=== PATIENT | female | born 1965 | race Hispanic/Latino ===

== ENCOUNTER 2018-09-23 05:10 | Observation (INO) | payer BC ==
[2018-09-22 09:52] LABS: BASOPHILS % 0.6 % (0.0-1.0); EOSINOPHILS # (AUTO) 0.2 (0.0-0.4); EOSINOPHILS % 2.6 % (0.0-6.0); HEMOGLOBIN 13.1 g/dL (12.0-16.0); LYMPHOCYTES % 31.6 % (18.0-39.1); MEAN CORPUSCULAR HEMOGLOBIN 25.5 pg (28-32); MEAN CORPUSCULAR HGB CONC 32.8 g/dL (31-35); MEAN CORPUSCULAR VOLUME 77.8 fL (81-99); MONOCYTES # (AUTO) 0.5 (0.2-0.8); MONOCYTES % 8.4 % (4.4-11.3); NEUTROPHILS # (AUTO) 3.5 (2.1-6.9); NEUTROPHILS % 56.6 % (38.7-80.0); PLATELET COUNT 234 x10e3/uL (140-360); RED BLOOD COUNT 5.14 x10e6/uL (3.6-5.1); RED CELL DISTRIBUTION WIDTH 15.3 % (11.7-14.4)
[2018-09-22 10:16] LABS: ALANINE AMINOTRANSFERASE 22 IU/L (0-55); ALBUMIN/GLOBULIN RATIO 1.1 (0.8-2.0); ALKALINE PHOSPHATASE 105 IU/L (40-150); BLOOD UREA NITROGEN 17 mg/dL (7-26); BUN/CREATININE RATIO 22 (6-25); CALCIUM 9.6 mg/dL (8.4-10.2); CARBON DIOXIDE 21 mmol/L (22-29); CHLORIDE 107 mmol/L (98-107); CREATININE, SERUM 0.77 mg/dL (0.57-1.11); EST GLOMERULAR FILTRATION RATE > 60 ML/MIN (60-); GLUCOSE 82 mg/dL (74-118); SODIUM 140 mmol/L (136-145)
[~2018-09-23] VITALS: Ht 165.1 cm; Wt 84.4 kg
[~2018-09-23 05:10] MED LIST: LEVOTHYROXINE50 MCG PO
--- OUTSIDE RECORDS SUMMARY | 2018-09-23 05:17 | XMS REPORT ---
Author Author Maru Sol [facility] eClinicalWorks Address Unknown Phone Unavailable Care Team Providers Care Piano Sounding Board Matcher Name Role Phone Maru Sol CP Unavailable Allergies No Known Allergies Problems Problem Type Condition Code Onset Dates Condition Status Problem Anemia, unspecified type D64.9 Active Problem Acquired hypothyroidism E03.9 Active Problem Iron deficiency anemia, unspecified iron deficiency anemia type D50.9 Active Assessment Iron deficiency anemia, unspecified iron deficiency anemia type D50.9 Active Medications No Known Medications Results No Known Results Summary Purpose eClinicalWorks Submission
--- OUTSIDE RECORDS SUMMARY | 2018-09-23 05:17 | XMS REPORT ---
Author Author Maru Sol [facility] eClinicalWorks Address Unknown Phone Unavailable Care Team Providers Care Peanut Vendor Name Role Phone Maru Sol CP Unavailable Allergies No Known Allergies Problems Problem Type Condition Code Onset Dates Condition Status Problem Anemia, unspecified type D64.9 Active Problem Acquired hypothyroidism E03.9 Active Problem Iron deficiency anemia, unspecified iron deficiency anemia type D50.9 Active Assessment Acquired hypothyroidism E03.9 Active Medications Medication Code System Code Instructions Start Date End Date Status Dosage Synthroid [facility] 77862927086 50 MCG Orally Once a day Active 1 tablet Results No Known Results Summary Purpose eClinicalWorks Submission
--- OUTSIDE RECORDS SUMMARY | 2018-09-23 05:17 | XMS REPORT ---
Author Author Niels Penaloza [facility] eClinicalWorks Address Unknown Phone Unavailable Care Team Providers Care Barrel Drum Cutter Name Role Phone Niels Penaloza CP Unavailable Encounters Encounter Location Date Follow-Up [facility] Feb 19, 2013 Test results [facility] Mar 24, 2013 WWE [facility] Jan 27, 2013 FBW/NIELS [facility] Jan 29, 2013 Test results [facility] Feb 16, 2013 Medications Medication Code System Code Instructions Start Date End Date Status Dosage Ferralet 90 [facility] [place] 2[place] [address]-14 90-1 MG Orally Once a day Mar 24, 2013 Active 1 tablet Social History Social History Element Qualifiers Date Reported children . 4 Feb 19, 2013 Tobacco Use: . Are you a: never smoker Feb 19, 2013 Marital Status: single. Noel Szymanski Feb 19, 2013 Do you drink alcohol? . 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
--- OUTSIDE RECORDS SUMMARY | 2018-09-23 05:17 | XMS REPORT ---
Author Author Deepti Almeida [facility] eClinicalWorks Address Unknown Phone Unavailable Care Team Providers Care Field Administrative Assistant Name Role Phone Deepti Almeida CP Unavailable Allergies No Known Allergies Problems Problem Type Condition Code Onset Dates Condition Status Problem Anemia, unspecified type D64.9 Active Problem Acquired hypothyroidism E03.9 Active Problem Iron deficiency anemia, unspecified iron deficiency anemia type D50.9 Active Medications No Known Medications Results No Known Results Summary Purpose eClinicalWorks Submission
--- OUTSIDE RECORDS SUMMARY | 2018-09-23 05:17 | XMS REPORT ---
Author Author Deepti Almeida [facility] eClinicalWorks Address Unknown Phone Unavailable Care Team Providers Care Fusion Operator Name Role Phone Deepti Almeida CP Unavailable Allergies No Known Allergies Problems Problem Type Condition Code Onset Dates Condition Status Problem Anemia, unspecified type D64.9 Active Problem Acquired hypothyroidism E03.9 Active Problem Iron deficiency anemia, unspecified iron deficiency anemia type D50.9 Active Medications No Known Medications Results No Known Results Summary Purpose eClinicalWorks Submission
--- OUTSIDE RECORDS SUMMARY | 2018-09-23 05:17 | XMS REPORT ---
Author Author Maru Sol [facility] eClinicalWorks Address Unknown Phone Unavailable Care Team Providers Care Assembler Fluorescent Lights Name Role Phone Mrau Sol CP Unavailable Allergies, Adverse Reactions, Alerts Substance Reaction Event Type N.K.D.A. Info Not Available Non Drug Allergy Problems Problem Type Condition Code Onset Dates Condition Status Assessment Screening for osteoporosis Z13.820 Active Assessment Iron deficiency anemia, unspecified iron deficiency anemia type D50.9 Active Assessment Screening for breast cancer Z12.39 Active Assessment Screening for colon cancer Z12.11 Active Problem Anemia, unspecified type D64.9 Active Problem Acquired hypothyroidism E03.9 Active Problem Iron deficiency anemia, unspecified iron deficiency anemia type D50.9 Active Assessment Anemia, unspecified type D64.9 Active Assessment Acquired hypothyroidism E03.9 Active Assessment Encntr for general adult medical exam w/o abnormal findings Z00.00 Active Medications Medication Code System Code Instructions Start Date End Date Status Dosage Multivitamin/Iron NDC 0 Orally Active not defined Fish Oil ND 90862761640 1000 MG Orally Once a day Active 1 capsule Ferralet 90 ND 97506362109 90-1 MG Orally Once a day Active 1 tablet Synthroid ND 89344159474 25 MCG Orally Once a day Active 1 tablet Results No Known Results Summary Purpose eClinicalWorks Submission
--- OUTSIDE RECORDS SUMMARY | 2018-09-23 05:17 | XMS REPORT ---
Author Author Maru Sol Organization eClinicalWorks Address Unknown Phone Unavailable Care Team Providers Care Customs Brokerage Manager Name Role Phone Maru Sol CP Unavailable Allergies, Adverse Reactions, Alerts Substance Reaction Event Type N.K.D.A. Info Not Available Non Drug Allergy Problems Problem Type Condition Code Onset Dates Condition Status Problem Acquired hypothyroidism E03.9 Active Assessment Anemia, unspecified type D64.9 Active Problem Anemia, unspecified type D64.9 Active Assessment Acquired hypothyroidism E03.9 Active Assessment Fatigue, unspecified type R53.83 Active Medications Medication Code System Code Instructions Start Date End Date Status Dosage Multivitamin/Iron NDC 0 Orally Active not defined Ferralet 90 ND 33763453734 90-1 MG Orally Once a day [place] [address]-28 1000 MG Orally Once a day Active 1 capsule Synthroid ND 54093159965 25 MCG Orally Once a day Active 1 tablet Vital Signs Date/Time: August 20, 2016 BMI 29.28 Index Weight 176 lbs Height 65 in Cardiac Monitoring Heart Rate 77 /min Blood Pressure Diastolic 70 mm Hg Blood Pressure Systolic 120 mm Hg Results No Known Results Summary Purpose eClinicalWorks Submission
--- OUTSIDE RECORDS SUMMARY | 2018-09-23 05:17 | XMS REPORT | Continuity of Care Document ---
Author Author [facility] Interface Address Unknown Phone Unavailable Problems Problem Status Onset Date Classification Date Reported Comments Source SCREENING Active 05/16/2018 [facility] Excessive and frequent menstruation with irregular cycle 05/30/2017 08/30/2017 [facility] N92.1 Active 05/17/2017 [facility] MAMMO Active 01/09/2016 [facility] Z12.39 ENCOUNTER FOR OTHER SCREENING FOR Active 12/06/2015 [facility] ROUTINE Active 05/14/2014 [facility] Anemia, unspecified type Active Problem 04/30/2018 [facility] Acquired hypothyroidism Active Problem 04/30/2018 [facility] Iron deficiency anemia, unspecified iron deficiency anemia type Active Problem 04/30/2018 [facility] Fatigue, unspecified type Active Diagnosis 08/21/2016 [facility] Nasal congestion Active Diagnosis 04/12/2017 [facility] Screening for osteoporosis Active Diagnosis 04/30/2018 [facility] Screening for breast cancer Active Diagnosis 04/30/2018 [facility] Screening for colon cancer Active Diagnosis 04/30/2018 [facility] Encntr for general adult medical exam w/o abnormal findings Active Diagnosis 04/30/2018 [facility] Hypothyroidism Active Diagnosis 02/20/2013 [facility] Anemia Active Problem 03/16/2014 [facility] Hypothyroid Active Problem 03/16/2014 [facility] iron deficiency anemia Active Diagnosis 04/08/2013 [facility] Axillary lump Active Diagnosis 01/29/2013 [facility] Acute pharyngitis Active Diagnosis 08/26/2013 [facility] Fever and chills Active Diagnosis 08/26/2013 [facility] Upper respiratory infection Active Diagnosis 03/16/2014 [facility] Cough Active Diagnosis 03/16/2014 [facility] Encntr for mounter automatic exam (routine) w/o abn findings Active Diagnosis 09/30/2015 [facility] Subserosal leiomyoma of uterus 08/30/2017 [facility] Encounter for screening mammogram for malignant neoplasm of breast 06/08/2018 [facility] Medications Medication Details Route Status Patient Instructions Ordering Provider Order Date Source Bromfed DM 10 ml as needed Orally Active 30-2-10 MG/5ML Orally every 6 hrs PRN [place] 04/10/2017 [facility] Synthroid 1 tablet Orally Active 25 MCG Orally Once a day (MUST SEE DOCTOR BEFORE NEXT REFILL) [place] 08/08/2015 [facility] Cefdinir 1 capsule Orally Active 300 MG Orally every 12 hrs [place] 01/19/2014 [facility] Promethazine-DM 5 ml as needed Orally Active 6.25-15 MG/5ML Orally every 6 hrs [place] 01/19/2014 [facility] Augmentin 1 tablet Orally Active 500-125 MG Orally Twice a day [place] 08/20/2013 [facility] Ferralet 90 1 tablet Orally Active 90-1 MG Orally Once a day [place] 03/24/2013 [facility] Ferralet 90 1 tablet Orally Active 90-1 MG Orally Once a day [place] 03/24/2013 [facility] Synthroid 1 tablet on an empty stomach in the morning Orally Active 25 MCG Orally Once a day [place] 02/19/2013 [facility] Diflucan 1 tablet Orally Active 150 MG Orally Once a day [facility] 02/16/2013 [facility] Multivitamin/Iron not defined Orally Active Orally [place] [facility] Ferralet 90 1 tablet Orally Active 90-1 MG Orally Once a day [place] [facility] Fish Oil 1 capsule Orally Active 1000 MG Orally Once a day [place] [facility] Synthroid 1 tablet Orally Active 25 MCG Orally Once a day [place] [facility] Fish Oil 1 capsule Orally Active 1000 MG Orally Once a day [place] [facility] Synthroid 1 tablet Orally Active 50 MCG Orally Once a day [place] [facility] NO OTC meds taken Unknown NA Active [place] [facility] Multivitamin/Iron Unknown Orally Active Orally [place] [facility] Allergies, Adverse Reactions, Alerts Substance Category Reaction Severity Reaction type Status Date Reported Comments Source N.K.D.A. Adverse Reaction Info Not Available Adverse Reaction Active 04/28/2018 [facility] Immunizations Immunization Date Given Site Status Last Updated Comments Source Results Order Name Results Value Reference Range Date Interpretation Comments Source Breast Mammo Scrn JENARO w phyllis incl CAD MA Breast Mammo Scrn JENARO w phyllis incl CAD MA BILATERAL DIGITAL SCREENING MAMMOGRAM 3D/2D WITH CAD: 06/06/2018 CLINICAL: /Routine. Current study was evaluated with a Computer Aided Detection (CAD) system. COMPARISON:Comparison is made to exams dated: 01/18/2016 mammogram, 12/30/2015 mammogram, 05/19/2014 mammogram, and 02/12/2013 mammogram - [facility]. TECHNIQUE: Digital Breast Tomosynthesis was performed and utilized for Interpretation. Worldscape Version 1.3 was utilized for computer aided detection. FINDINGS: There are scattered fibroglandular densities in both breasts. There is a benign mass in the right breast. No significant masses, calcifications, or other findings are seen in either breast. There has been no significant interval change. IMPRESSION: BENIGN RECOMMENDATION:There is no mammographic evidence of malignancy. A 1 year screening mammogram is recommended.(06/07/2019) This exam was interpreted at [id number] for [facility]. Long John M.D. jt/penrad:06/06/2018 13:01:35 Maintenance Parts Technician(s): Madelyn Wagoner [facility] letter sent: BI-RADS 1/2 Mammogram BI-RADS: 2 Benign 06/06/2018 - - Read by: Long John MD Dictated Date/time: 06/06/18 13:01 Electronically Signed by: Long John MD 06/06/18 13:01 FINAL REPORT [facility] Pelvis Transvaginal US Pelvis Transvaginal US TRANSVAGINAL PELVIC ULTRASOUND. HISTORY: Abnormal vaginal bleeding. COMPARISON: No priors available. The uterus measures 9.7 x 6.3 x 6.4 cm. There is a 2.0 x 2.4 x 3.0 cm subserosal uterine fibroid. Endometrial stripe is not well visualized. The right ovary is 1.7 x 2.1 x 1.5 cm. The left ovary is 1.7 x 2.7 x 1.5 cm. There is no free pelvic fluid. Adequate Doppler ultrasound evaluation of the ovaries not performed. IMPRESSION: Subserosal uterine fibroid as above otherwise normal exam. END IMPRESSION SL: [id number]-M 05/24/2017 - - Read by: Danny Allen MD Dictated Date/time: 05/24/17 15:29 Electronically Signed by: Danny Allen MD 05/24/17 15:34 FINAL REPORT [facility] Breast Complete Jenaro US Breast Complete Jenaro US - BREAST COMPLETE JENARO US ULTRASOUND OF BOTH BREASTS AND BOTH AXILLA: 01/18/2016 CLINICAL: Dense breasts abnormal mammogram, mammographic nodule/density. Comparison is made to exams dated: 01/18/2016 mammogram, 12/30/2015 mammogram, 05/19/2014 mammogram, 02/12/2013 ultrasound and 02/12/2013 mammogram - [facility]. Color flow and real-time ultrasound of both breasts and both axilla were performed. Craig scale images of the real-time examination were reviewed. For both breasts, all 4 quadrants, the retroareolar region and axilla are evaluated in this exam. No abnormalities were seen sonographically in either breast or either axilla. During the exam, the patient mentioned she has an area of concern/tenderness in the right axilla (developed since her screening exam) which was also evaluated. IMPRESSION: BENIGN There is no sonographic evidence of malignancy. There is no suspicious sonographic abnormality seen in the left breast to correspond with the initial mammographic density which is consistent with normal fibroglandular tissue. There is no sonographic abnormality seen in the right axilla to correspond with the area of clinical concern in the right axilla which likely represents hormonal stimulation and normal fibroglandular tissue. Return to annual mammogram screening schedule is recommended. The results were reviewed with the patient. SUMMARY: The patient will follow up with their primary care physician. It was discussed with the patient that if clinical symptoms worsen, possible additional imaging may be recommended. Long galeanot/:01/18/2016 13:52:36 Maintenance Parts Technician: Jere Salcido [facility] This exam was dictated and interpreted by [id number] for [facility]. letter sent: Normal exam Ultrasound BI-RADS: 2 Benign 01/18/2016 - - Read by: Long John MD Dictated Date/time: 01/18/16 13:52 Electronically Signed by: Long John MD 01/18/16 13:52 FINAL REPORT [facility] Digital Mammo DX Uni MA w phyllis Digital Mammo DX Uni MA w phyllis - DIGITAL MAMMO DX UNI MA W PHYLLIS/L UNILATERAL LEFT DIGITAL DIAGNOSTIC MAMMOGRAM 3D/2D WITH CAD: 01/18/2016 CLINICAL: Mammographic Abnormality. 2D digital mammographic images and 3D digital tomosynthesis images were obtained in the CC and MLO projections. Current study was evaluated with a Computer Aided Detection (CAD) system. Comparison is made to exams dated: 12/30/2015 mammogram, 05/19/2014 mammogram and 02/12/2013 mammogram - [facility]. The tissue of the left breast is heterogeneously dense, which could obscure detection of small masses. The previously described nodular density in the left breast largely effaces on today's additional imaging, likely representing fibroglandular tissue. However ultrasound will be performed for confirmation. No significant masses, calcifications, or other findings are seen in the breast. There has been no significant interval change. IMPRESSION: INCOMPLETE: NEEDS ADDITIONAL IMAGING EVALUATION The previously described nodular density in the left breast largely effaces on today's additional imaging, likely representing fibroglandular tissue. However ultrasound will be performed for confirmation and to exclude underlying pathology. The results were reviewed with the patient. SUMMARY: Ultrasound will be performed at this time; please see dedicated separate report. Bilateral ultrasound will be performed secondary to the patient's increased breast density. Long whitman/penrad:01/18/2016 13:49:20 Maintenance Parts Technician: Madelyn Wagoner, [facility] This exam was dictated and interpreted by [id number] for [facility]. Mammogram BI-RADS: 0 Indeterminate 01/18/2016 - - Read by: Long John MD Dictated Date/time: 01/18/16 13:49 Electronically Signed by: Long John MD 01/18/16 13:49 FINAL REPORT [facility] Digital Mammo Screening Jenaro MA Digital Mammo Screening Jenaro MA - DIGITAL MAMMO SCREENING JENARO MA BILATERAL DIGITAL SCREENING MAMMOGRAM WITH CAD: 12/30/2015 CLINICAL: Routine. Current study was evaluated with a Computer Aided Detection (CAD) system. Comparison is made to exams dated: 05/19/2014 mammogram and 02/12/2013 mammogram - [facility]. The tissue of both breasts is heterogeneously dense, which could obscure detection of small masses. There are benign densities in the right breast. There is a focal asymmetry in the left breast at 1 o'clock posterior depth. This is more prominent. There is possible associated architectural distortion. No other significant masses, calcifications, or other findings are seen in either breast. IMPRESSION: INCOMPLETE: NEEDS ADDITIONAL IMAGING EVALUATION The focal asymmetry in the left breast is indeterminate. Left diagnostic TOMOSYNTHESIS mammogram with possible ultrasound is recommended (spot compression and lateral views). SUMMARY: As the patient has dense breast parenchyma, this could obscure additional abnormalities. The patient would likely benefit from a supplemental screening test such as bilateral ultrasound. This should be discussed with the patient by the referring physician. Long whitman/abhishek:12/30/2015 13:35:14 Maintenance Parts Technician: Lona Pennington, [facility] This exam was dictated and interpreted by [id number] for [facility]. letter sent: Additional Imaging Mammogram BI-RADS: 0 Indeterminate 12/30/2015 - - Read by: Long John MD Dictated Date/time: 12/30/15 13:35 Electronically Signed by: Long John MD 12/30/15 13:35 FINAL REPORT [facility] Vital Signs Vital Sign Value Date Comments Source Weight 182 04/10/2017 [facility] Height 65 04/10/2017 [facility] Heart Rate 75 04/10/2017 [facility] Diastolic (mm Hg) 76 04/10/2017 [facility] Systolic (mm Hg) 110 04/10/2017 [facility] Weight 176 08/20/2016 [facility] Height 65 08/20/2016 [facility] Heart Rate 77 08/20/2016 [facility] Diastolic (mm Hg) 70 08/20/2016 [facility] Systolic (mm Hg) 120 08/20/2016 [facility] Weight 178 09/28/2015 [facility] Height 65 09/28/2015 [facility] Heart Rate 80 09/28/2015 [facility] Diastolic (mm Hg) 80 09/28/2015 [facility] Systolic (mm Hg) 120 09/28/2015 [facility] Systolic (mm Hg) 110 01/19/2014 [facility] Weight 172 01/19/2014 [facility] Height 65 01/19/2014 [facility] Temperature Oral (F) 98.4 F 01/19/2014 [facility] Heart Rate 80 01/19/2014 [facility] Diastolic (mm Hg) 72 01/19/2014 [facility] Weight 179 08/20/2013 [facility] Height 65 08/20/2013 [facility] Temperature Oral (F) 99.7 F 08/20/2013 [facility] Heart Rate 84 08/20/2013 [facility] Diastolic (mm Hg) 70 08/20/2013 [facility] Systolic (mm Hg) 130 08/20/2013 [facility] Weight 183 04/06/2013 [facility] Height 65 04/06/2013 [facility] Temperature Oral (F) 98.8 F 04/06/2013 [facility] Heart Rate 72 04/06/2013 [facility] Diastolic (mm Hg) 72 04/06/2013 [facility] Systolic (mm Hg) 118 04/06/2013 [facility] Weight 180 02/19/2013 [facility] Height 65 02/19/2013 [facility] Heart Rate 68 02/19/2013 [facility] Diastolic (mm Hg) 76 02/19/2013 [facility] Systolic (mm Hg) 124 02/19/2013 [facility] Weight 180 01/27/2013 [facility] Height 65 01/27/2013 [facility] Heart Rate 70 01/27/2013 [facility] Diastolic (mm Hg) 78 01/27/2013 [facility] Systolic (mm Hg) 126 01/27/2013 [facility] Encounters Location Location Details Encounter Type Encounter Number Reason For Visit Attending Provider ADM Date DC Date Status Source [facility] WWE [id number] 01/27/2013 01/27/2013 [facility] WWE [id number] 01/27/2013 01/27/2013 [facility] WWE [id number] 01/27/2013 01/27/2013 [facility] WWE [id number] 01/27/2013 01/27/2013 [facility] WWE [id number] 01/27/2013 01/27/2013 [facility] WWE [id number] 01/27/2013 01/27/2013 [facility] WWE [id number] 01/27/2013 01/27/2013 [facility] WWE [id number] 01/27/2013 01/27/2013 [facility] WWE [id number] 01/27/2013 01/27/2013 [facility] [place]ERETT [id number] 01/27/2013 01/27/2013 [facility] RAQUEL/NIELS [id number] 01/29/2013 01/29/2013 [facility] RAQUEL/NIELS [id number] 01/29/2013 01/29/2013 [facility] RAQUEL/NIELS [id number] 01/29/2013 01/29/2013 [facility] RAQUEL/NIELS [id number] 01/29/2013 01/29/2013 [facility] RAQUEL/NIELS [id number] 01/29/2013 01/29/2013 [facility] RAQUEL/NIELS [id number] 01/29/2013 01/29/2013 [facility] RAQUEL/NIELS [id number] 01/29/2013 01/29/2013 [facility] RAQUEL/NIELS [id number] 01/29/2013 01/29/2013 [facility] RAQUEL/NIELS [id number] 01/29/2013 01/29/2013 [facility] Test results [id number] 02/16/2013 02/16/2013 [facility] Test results [id number] 02/16/2013 02/16/2013 [facility] Test results [id number] 02/16/2013 02/16/2013 [facility] Test results [id number] 02/16/2013 02/16/2013 [facility] Test results [id number] 02/16/2013 02/16/2013 [facility] Test results [id number] 02/16/2013 02/16/2013 [facility] Test results [id number] 02/16/2013 02/16/2013 [facility] Test results [id number] 02/16/2013 02/16/2013 [facility] Follow-Up [id number] 02/19/2013 02/19/2013 [facility] Follow-Up [id number] 02/19/2013 02/19/2013 [facility] Follow-Up [id number] 02/19/2013 02/19/2013 [facility] Follow-Up [id number] 02/19/2013 02/19/2013 [facility] Follow-Up [id number] 02/19/2013 02/19/2013 [facility] Follow-Up [id number] 02/19/2013 02/19/2013 [facility] Follow-Up [id number] 02/19/2013 02/19/2013 [facility] Follow-Up [id number] 02/19/2013 02/19/2013 [facility] Test results [id number] 03/24/2013 03/24/2013 [facility] Test results [id number] 03/24/2013 03/24/2013 [facility] Test results [id number] 03/24/2013 03/24/2013 [facility] Test results [id number] 03/24/2013 03/24/2013 [facility] Test results [id number] 03/24/2013 03/24/2013 [facility] Test results [id number] 03/24/2013 03/24/2013 [facility] Follow-Up [id number] 04/06/2013 04/06/2013 [facility] Follow-Up [id number] 04/06/2013 04/06/2013 [facility] Follow-Up [id number] 04/06/2013 04/06/2013 [facility] Follow-Up [id number] 04/06/2013 04/06/2013 [facility] Follow-Up [id number] 04/06/2013 04/06/2013 [facility] SORE THROAT/ COLD CHILLS [id number] 08/20/2013 08/20/2013 [facility] SORE THROAT/ COLD CHILLS [id number] 08/20/2013 08/20/2013 [facility] SORE THROAT/ COLD CHILLS [id number] 08/20/2013 08/20/2013 [facility] SORE THROAT/ COLD CHILLS [id number] 08/20/2013 08/20/2013 [facility] COUGH/SORE THROAT [id number] 01/19/2014 01/19/2014 [facility] COUGH/SORE THROAT [id number] 01/19/2014 01/19/2014 [facility] COUGH/SORE THROAT [id number] 01/19/2014 01/19/2014 [facility] MEDICATION REFILL [id number] 05/14/2014 05/14/2014 [facility] MEDICATION REFILL [id number] 05/14/2014 05/14/2014 [facility] Outpatient [id number] Deepti VillalobosSolis 05/19/2014 05/20/2014 [facility] SORE THROAT [id number] 07/23/2014 07/23/2014 [facility] SORE THROAT [id number] 07/23/2014 07/23/2014 [facility] Labs [id number] 07/28/2014 07/28/2014 [facility] Labs [id number] 07/28/2014 07/28/2014 [facility] physical exam [id number] 09/28/2015 09/28/2015 [facility] physical exam [id number] 09/28/2015 09/28/2015 [facility] [id number] 10/03/2015 10/03/2015 [facility] [id number] Deepti Merritt 12/30/2015 12/31/2015 [facility] Outpatient [id number] Deepti Merritt 01/18/2016 01/19/2016 [facility] Outpatient [id number] Phoebe Bradshaw 05/24/2017 05/25/2017 [facility] Outpatient [id number] Maru Sol 06/06/2018 06/07/2018 [facility] Procedures Procedure Code Date Perfomer Comments Source
--- OUTSIDE RECORDS SUMMARY | 2018-09-23 05:17 | XMS REPORT ---
Author Author Maru Sol Organization [employer] Address Unknown Phone Unavailable Care Team Providers Care Public Health Name Role Phone Maru Sol CP Unavailable Allergies, Adverse Reactions, Alerts Substance Reaction Event Type N.K.D.A. Info Not Available Non Drug Allergy Problems Problem Type Condition Code Onset Dates Condition Status Problem Anemia, unspecified type D64.9 Active Problem Acquired hypothyroidism E03.9 Active Problem Iron deficiency anemia, unspecified iron deficiency anemia type D50.9 Active Assessment Nasal congestion R09.81 Active Assessment Acquired hypothyroidism E03.9 Active Medications Medication Code System Code Instructions Start Date End Date Status Dosage Fish Oil ND 48288853806 1000 MG Orally Once a day Active 1 capsule Bromfed DM [facility] 62163089750 30-2-10 MG/5ML Orally every 6 hrs PRN Apr 10, 2017 Apr 17, 2017 Active 10 ml as needed Multivitamin/Iron NDC 0 Orally Active not defined Synthroid ND 59544054122 25 MCG Orally Once a day Active 1 tablet Ferralet 90 ND 60137181993 90-1 MG Orally Once a day Active 1 tablet Vital Signs Date/Time: Apr 10, 2017 BMI 30.28 Index Weight 182 lbs Height 65 in Cardiac Monitoring Heart Rate 75 /min Blood Pressure Diastolic 76 mm Hg Blood Pressure Systolic 110 mm Hg Results No Known Results Summary Purpose eClinicalWorks Submission
--- OUTSIDE RECORDS SUMMARY | 2018-09-23 05:17 | XMS REPORT ---
Author Author Deepti Almeida [facility] [employer] Address Unknown Phone Unavailable Care Team Providers Care [place] Name Role Phone Deepti Almeida CP Unavailable Allergies No Known Allergies Problems Problem Type Condition Code Onset Dates Condition Status Problem Anemia, unspecified type D64.9 Active Problem Acquired hypothyroidism E03.9 Active Problem Iron deficiency anemia, unspecified iron deficiency anemia type D50.9 Active Medications No Known Medications Results No Known Results Summary Purpose eClinicalWorks Submission
--- OUTSIDE RECORDS SUMMARY | 2018-09-23 05:17 | XMS REPORT ---
Author Author Niels Penaloza Organization [employer] Address Unknown Phone Unavailable Care Team Providers Care Charge Machine Operator Name Role Phone Niels Penaloza CP Unavailable Encounters Encounter Location Date Follow-Up [facility] Feb 19, 2013 Test results [facility] Mar 24, 2013 Follow-Up [facility] Apr 06, 2013 [facility] Jan 27, 2013 FBW/NIELS [facility] Jan 29, 2013 Test results [facility] Feb 16, 2013 Problems Problem Type Condition ICD-9 Code Onset Dates Condition Status Problem Hypothyroid 244.9 Active Assessment iron deficiency anemia 280.9 Active Problem Anemia 285.9 Active Assessment Hypothyroid 244.9 Active Medications Medication Code System Code Instructions Start Date End Date Status Dosage Ferralet 90 [facility] [address]-16 90-1 MG Orally Once a day Mar 24, 2013 Active 1 tablet Synthroid [facility] [address]-71 25 MCG Orally Once a day Feb 19, 2013 Active 1 tablet on an empty stomach in the morning Social History Social History Element Qualifiers Date Reported children . 4 Apr 06, 2013 Tobacco Use: . Are you a: never smoker Apr 06, 2013 Marital Status: single. Noel Szymanski Apr 06, 2013 Do you drink alcohol? . 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
--- OUTSIDE RECORDS SUMMARY | 2018-09-23 05:18 | XMS REPORT | Summary of Care ---
Author Author [facility] Organization [facility] Address Unknown Phone Unavailable Encounter HQ Encntr_alias(FIN) [id number] Date(s): 06/06/18 - 06/06/18 [facility] [address] [place] [address]- Encounter Diagnosis Encounter for screening mammogram for malignant neoplasm of breast (Final) - Discharge Disposition: Home or Self Care Attending Physician: Maru Sol Referring Physician: Maru Sol Vital Signs No data available for this section Problem List No data available for this section Allergies, Adverse Reactions, Alerts No data available for this section Medications No data available for this section Results No data available for this section Immunizations No data available for this section Procedures No data available for this section Social History No data available for this section Assessment and Plan No data available for this section
--- OUTSIDE RECORDS SUMMARY | 2018-09-23 05:18 | XMS REPORT ---
Author Author Adilia Penaloza Organization [employer] Address Unknown Phone Unavailable Care Team Providers Care Interactive Media Director Name Role Phone Adilia Penaloza CP Unavailable Encounters Encounter Location Date [facility] Jan 27, 2013 FBW/[facility] Jan 29, 2013 Problems Problem Type Condition ICD-9 Code Onset Dates Condition Status Assessment Well woman exam with routine gynecological exam V72.31 Active Social History Social History Element Qualifiers Date Reported children . 4 Jan 27, 2013 Tobacco Use: . Are you a: never smoker Jan 27, 2013 Marital Status: single. Noel Szymanski Jan 27, 2013 Do you drink alcohol? . 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
--- OUTSIDE RECORDS SUMMARY | 2018-09-23 05:18 | XMS REPORT | Summary of Care ---
Author Author [facility] Organization [facility] Address Unknown Phone Unavailable Encounter HQ Viral_geovanni(FIN) [id number] Date(s): 05/24/17 - 05/24/17 [facility] [address] [place] [address]- Encounter Diagnosis Excessive and frequent menstruation with irregular cycle (Final) - 05/29/17 Subserosal leiomyoma of uterus (Final) - Discharge Disposition: Home or Self Care Attending Physician: Phoebe Bradshaw MD Referring Physician: Phoebe Bradshaw MD Vital Signs No data available for this [...]
--- OUTSIDE RECORDS SUMMARY | 2018-09-23 05:18 | XMS REPORT | Summary of Care ---
Author Author [facility] Organization [facility] Address Unknown Phone Unavailable Encounter HQ Encntr_alias(FIN) [id number] Date(s): 12/30/15 - 12/30/15 [facility] [address] [place] [address]- Discharge Disposition: Home or Self Care Attending Physician: Deepti Merritt DO Referring Physician: Deepti Merritt DO Vital Signs No data available for this [...]
--- OUTSIDE RECORDS SUMMARY | 2018-09-23 05:18 | XMS REPORT | Summary of Care ---
Author Author [facility] Organization [facility] Address Unknown Phone Unavailable Encounter HQ Encntr_alias(DEB) [id number] Date(s): 01/18/16 - 01/18/16 [facility] [address] [place] [address]- Discharge Disposition: Home or Self Care Attending [...]
--- OUTSIDE RECORDS SUMMARY | 2018-09-23 05:18 | XMS REPORT ---
Author Author France Layne [facility] eClinicalWorks Address Unknown Phone Unavailable Care Team Providers Care Sales Representative [employer] Name Role Phone France Layne CP Unavailable Allergies, Adverse Reactions, Alerts Substance Reaction Event Type N.K.D.A. Info Not Available Non Drug Allergy Encounters Encounter Location Date Follow-Up [facility] Feb 19, 2013 Test results [facility] Mar 24, 2013 Follow-Up [facility] Apr 06, 2013 SORE THROAT/ COLD CHILLS [facility] August 20, 2013 WWE [facility] Jan 27, 2013 FBW/NIELS [facility] Jan 29, 2013 Test results [facility] Feb 16, 2013 COUGH/SORE THROAT [facility] Jan 19, 2014 Problems Problem Type Condition ICD-9 Code Onset Dates Condition Status Problem Hypothyroid 244.9 Active Assessment Upper respiratory infection 465.9 Active Problem Anemia 285.9 Active Assessment Cough 786.2 Active Medications Medication Code System Code Instructions Start Date End Date Status Dosage Multivitamin/Iron Unknown 0 Orally Active Unknown Fish Oil [facility] [address]-60 1000 MG Orally Once a day Active 1 capsule Synthroid [facility] [address]-40 25 MCG Orally Once a day Feb 19, 2013 Active 1 tablet on an empty stomach in the morning Cefdinir [facility] [address]-89 300 MG Orally every 12 hrs Jan 19, 2014 Jan 29, 2014 Active 1 capsule Promethazine-DM [facility] [address]-54 6.25-15 MG/5ML Orally every 6 hrs Jan 19, 2014 Jan 29, 2014 Active 5 ml as needed Ferralet 90 [facility] [address]-82 90-1 MG Orally Once a day Mar 24, 2013 Active 1 tablet Social History Social History Element Qualifiers Date Reported Depression Screening: . 08/2013Jan 19, 2014 Flu Vaccine: . NO Jan 19, 2014 children . 4 Jan 19, 2014 Tobacco Use: . Are you a: never smoker Jan 19, 2014 Marital Status: single. Noel Szymanski Jan 19, 2014 Do you drink alcohol? . 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
--- OUTSIDE RECORDS SUMMARY | 2018-09-23 05:18 | XMS REPORT | Summary of Care ---
Author Organization Unknown Address Unknown Phone Unavailable Encounter HQ Encntr_geovanni(DEB) [id number] Date(s): 05/19/14 - 05/19/14 [facility] [address] Discharge Disposition: Home Physician Attending: Deepti Merritt DO Physician_Referring: Deepti Merritt DO Reason for Visit ROUTINE Problem List No data available for this section Allergies, Adverse Reactions, Alerts No data available for this section Medications No data available for this section Medications Administered During Your Visit No data available for this section Immunizations No data available for this section
--- OUTSIDE RECORDS SUMMARY | 2018-09-23 05:18 | XMS REPORT ---
Author Author Maru Sol [facility] [employer]ClinicalWorks Address Unknown Phone Unavailable Care Team Providers Care Quickbooks Bookkeeper Name Role Phone Maru Sol CP Unavailable Allergies, Adverse Reactions, Alerts Substance Reaction Event Type N.K.D.A. Info Not Available Non Drug Allergy Encounters Encounter Location Date Follow-Up [facility] Feb 19, 2013 Test results [facility] Mar 24, 2013 Follow-Up [facility] Apr 06, 2013 SORE THROAT/ COLD CHILLS [facility] August 20, 2013 WWE [facility] Jan 27, 2013 Labs [facility] July 28, 2014 FBW/NIELS [facility] Jan 29, 2013 physical exam [facility] September 28, 2015 Test results [facility] Feb 16, 2013 SORE THROAT [facility] July 23, 2014 COUGH/SORE THROAT [facility] Jan 19, 2014 MEDICATION REFILL [facility] May 14, 2014 Problems Problem Type Condition ICD-9 Code Onset Dates Condition Status Problem Acquired hypothyroidism E03.9 Active Assessment Encntr for welfare director exam (general) (routine) w/o abn findings Z01.419 Active Problem Anemia, unspecified type D64.9 Active Assessment Screening for breast cancer Z12.39 Active Assessment Colon cancer screening Z12.11 Active Assessment Anemia, unspecified type D64.9 Active Assessment Acquired hypothyroidism E03.9 Active Medications Medication Code System Code Instructions Start Date End Date Status Dosage Ferralet 90 [facility] [address]-60 90-1 MG Orally Once a day Mar 24, 2013 Active 1 tablet Multivitamin/Iron Unknown 0 Orally Active Unknown Synthroid [facility] [address]-76 25 MCG Orally Once a day (MUST SEE DOCTOR BEFORE NEXT REFILL) August 08, 2015 Active 1 tablet [facility] [address]-17 1000 MG Orally Once a day Active 1 capsule Social History Social History Element Qualifiers Date Reported Depression Screening: . 08/2013September 28, 2015 Flu Vaccine: . NO September 28, 2015 children . 4 September 28, 2015 Tobacco Use: . Are you a: never smoker September 28, 2015 Marital Status: single. Noel Szymanski September 28, 2015 Do you drink alcohol? . 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 Family history Qualifier Description Comment Date Reported Maternal Grandmother Comment not available September 28, 2015 Paternal Grandmother Comment not available September 28, 2015 Siblings alive healthy September 28, 2015 Maternal Grandfather Comment not available September 28, 2015 Children alive healthy September 28, 2015 Father alive healthy September 28, 2015 Paternal Grandfather Comment not available September 28, 2015 Mother alive healthy September 28, 2015 Other: Comment not available September 28, 2015 Vital Signs Date/Time: September 28, 2015 Weight 178 lbs Height 65 in Cardiac Monitoring Heart Rate 80 /min Blood Pressure Diastolic 80 mm Hg Blood Pressure Systolic 120 mm Hg Results HEMOCCULT BRITTANIE Summary Purpose eClinicalWorks Submission
--- OUTSIDE RECORDS SUMMARY | 2018-09-23 05:18 | XMS REPORT ---
Author Author Adilia Penaloza Organization [employer]Works Address Unknown Phone Unavailable Care Team Providers Care Department Editor Name Role Phone Adilia Penaloza CP Unavailable Encounters Encounter Location Date [facility] Jan 27, 2013 Problems Problem Type Condition ICD-9 Code Onset Dates Condition Status Assessment Axillary lump 782.2 Active Assessment Well woman exam with routine gynecological exam V72.31 Active Medications Medication Code System Code Instructions Start Date End Date Status Dosage NO OTC meds taken MULTUM 65321 Active Unknown Social History Social History Element Qualifiers Date Reported children . 4 Jan 27, 2013 Tobacco Use: . Are you a: never smoker Jan 27, 2013 Marital Status: single. Neol Szymanski Jan 27, 2013 Do you drink alcohol? . 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
--- OUTSIDE RECORDS SUMMARY | 2018-09-23 05:18 | XMS REPORT ---
Author Author France Layne [facility] eClinicalWorks Address Unknown Phone Unavailable Care Team Providers Care Microsoft Infrastructure Consultant Name Role Phone France Layne CP Unavailable Allergies, Adverse Reactions, Alerts Substance Reaction Event Type N.K.D.A. Info Not Available Non Drug Allergy Encounters Encounter Location Date Follow-Up [facility] Feb 19, 2013 Test results [facility] Mar 24, 2013 Follow-Up [facility] Apr 06, 2013 SORE THROAT/ COLD CHILLS [facility] August 20, 2013 WWE [facility] Jan 27, 2013 FBW/NIELS [facility] Jan 29, [address] [facility] Feb 16, 2013 Problems Problem Type Condition ICD-9 Code Onset Dates Condition Status Problem Hypothyroid 244.9 Active Assessment Acute pharyngitis 462 Active Problem Anemia 285.9 Active Assessment Fever and chills 780.60 Active Assessment Hypothyroid 244.9 Active Assessment Anemia 285.9 Active Medications Medication Code System Code Instructions Start Date End Date Status Dosage Fish Oil [facility] [address]-21 1000 MG Orally Once a day Active 1 capsule Augmentin [facility] [address]-70 500-125 MG Orally Twice a day August 20, 2013 August 30, 2013 Active 1 tablet Synthroid [facility] [address]-37 25 MCG Orally Once a day Feb 19, 2013 Active 1 tablet on an empty stomach in the morning Multivitamin/Iron Unknown 0 Orally Active Unknown Ferralet 90 [facility] [address]-25 90-1 MG Orally Once a day Mar 24, 2013 Active 1 tablet Social History Social History Element Qualifiers Date Reported Depression Screening: . 08/2013August 20, 2013 Flu Vaccine: . NO August 20, 2013 children . 4 August 20, 2013 Tobacco Use: . Are you a: never smoker August 20, 2013 Marital Status: single. Jamesjese Stephon August 20, 2013 Do you drink alcohol? . 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 August 20, 2013 Family history Qualifier Description Comment Date Reported Mother alive healthy August 20, 2013 Children alive healthy August 20, 2013 Father alive healthy August 20, 2013 Siblings alive healthy August 20, 2013 Vital Signs Date/Time: August 20, 2013 Weight 179 lbs Height 65 in Temperature 99.7 F Cardiac Monitoring Heart Rate 84 /min Blood Pressure Diastolic 70 mm Hg Blood Pressure Systolic 130 mm Hg Results TSH TSH(-0.450-4.500 uIU/mL) 3.370 CBC With Differential/Platelet Basos(-0-3 %) 0 MCV(-79-97 fL) 79 Hematocrit(-34.0-46.6 %) 39.8 Eos(-0-5 %) 1 MCHC(-31.5-35.7 g/dL) 31.7 Monocytes(-4-12 %) 7 MCH(-26.6-33.0 pg) 25.0 Lymphs(-14-46 %) 13 Eos (Absolute)(-0.0-0.4 x10E3/uL) 0.1 WBC(-3.4-10.8 x10E3/uL) 12.1 Monocytes(Absolute)(-0.1-0.9 x10E3/uL) 0.9 Lymphs (Absolute)(-0.7-3.1 x10E3/uL) 1.6 Hemoglobin(-11.1-15.9 g/dL) 12.6 Neutrophils (Absolute)(-1.4-7.0 x10E3/uL) 9.5 RBC(-3.77-5.28 x10E6/uL) 5.05 Immature Grans (Abs)(-0.0-0.1 x10E3/uL) 0.0 Immature Granulocytes(-0-2 %) 0 Neutrophils(-40-74 %) 79 Baso (Absolute)(-0.0-0.2 x10E3/uL) 0.0 RDW(-12.3-15.4 %) 17.7 Platelets(-155-379 x10E3/uL) 265 RAPID FLU RAPID STREP Comp. Metabolic Panel (14) Potassium, Serum(-3.5-5.2 mmol/L) 4.8 Sodium, Serum(-134-144 mmol/L) 141 BUN/Creatinine Ratio(-9-23 ) 20 eGFR If Africn Am(- >59 mL/min/1.73) 120 eGFR If NonAfricn Am(- >59 mL/min/1.73) 104 Creatinine, Serum(-0.57-1.00 mg/dL) 0.70 BUN(-6-24 mg/dL) 14 Glucose, Serum(-65-99 mg/dL) 88 AST (SGOT)(-0-40 IU/L) 19 Globulin, Total(-1.5-4.5 g/dL) 2.8 ALT (SGPT)(-0-32 IU/L) 20 A/G Ratio(-1.1-2.5 ) 1.6 Bilirubin, Total(-0.0-1.2 mg/dL) 0.3 Alkaline Phosphatase, S(-39-117 IU/L) 81 Carbon Dioxide, Total(-19-28 mmol/L) 25 Calcium, Serum(-8.7-10.2 mg/dL) 9.5 Protein, Total, Serum(-6.0-8.5 g/dL) 7.3 Albumin, Serum(-3.5-5.5 g/dL) 4.5 Chloride, Serum(-97-108 mmol/L) 103 Summary Purpose eClinicalWorks Submission
--- OUTSIDE RECORDS SUMMARY | 2018-09-23 05:18 | XMS REPORT ---
Author Author Niels Penaloza Organization [employer] Address Unknown Phone Unavailable Care Team Providers Care Occupational Health Nurse Manager Name Role Phone Niels Penaloza CP Unavailable Encounters Encounter Location Date Follow-Up [facility] Feb 19, 2013 [facility] Jan 27, 2013 FBW/NIELS [facility] Jan 29, 2013 Test results [facility] Feb 16, 2013 Problems Problem Type Condition ICD-9 Code Onset Dates Condition Status Assessment Hypothyroidism 244.9 Active Assessment Anemia 285.9 Active Medications Medication Code System Code Instructions Start Date End Date Status Dosage Synthroid NDC [address]-24 25 MCG Orally Once a day Feb 19, 2013 Active 1 tablet on an empty stomach in the morning NO OTC meds taken MULTUM 22471 Active Unknown Social History Social History Element Qualifiers Date Reported children . 4 Feb 19, 2013 Tobacco Use: . Are you a: never smoker Feb 19, 2013 Marital Status: single. Noel Szymanski Feb 19, 2013 Do you drink alcohol? . 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
--- OUTSIDE RECORDS SUMMARY | 2018-09-23 05:18 | XMS REPORT ---
Author Author Maru Sol Organization [employer] Address Unknown Phone Unavailable Care Team Providers Care Environmental Engineering Technician Name Role Phone Maru Sol Unavailable Encounters Encounter Location Date Follow-Up [facility] Feb 19, 2013 Test results [facility] Mar 24, 2013 Follow-Up [facility] Apr 06, 2013 SORE THROAT/ COLD CHILLS [facility] August 20, 2013 WWE [facility] Jan 27, 2013 FBW/NIELS [facility] Jan 29, 2013 Test results [facility] Feb 16, 2013 SORE THROAT [facility] July 23, 2014 COUGH/SORE THROAT [facility] Jan 19, 2014 MEDICATION REFILL [facility] May 14, 2014 rf [facility] October 03, 2015 Labs [facility] July 28, 2014 physical exam [facility] September 28, 2015 Problems Problem Type Condition ICD-9 Code Onset Dates Condition Status Problem Acquired hypothyroidism E03.9 Active Problem Anemia, unspecified type D64.9 Active Medications Medication Code System Code Instructions Start Date End Date Status Dosage Synthroid [facility]AN [address]-97 25 MCG Orally Once a day (MUST SEE DOCTOR BEFORE NEXT REFILL) August 08, 2015 Active 1 tablet [facility] [address]-22 90-1 MG Orally Once a day Mar [...] Rarely September 28, 2015 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
--- OUTSIDE RECORDS SUMMARY | 2018-09-23 05:18 | XMS REPORT ---
Author Author Deepti Rojas [facility] [employer] Address Unknown Phone Unavailable Care Team Providers Care Systems Engineering Manager Name Role Phone Deepti Rojas CP Unavailable Encounters Encounter Location Date Follow-Up [facility] Feb 19, 2013 [facility] Jan 27, 2013 [facility] Jan 29, 2013 Test results [facility] Feb 16, 2013 Medications Medication Code System Code Instructions Start Date End Date Status Dosage Diflucan [facility] [address]-08 150 MG Orally Once a day Feb 16, 2013 Feb 17, 2013 Active 1 tablet Social History Social History Element Qualifiers Date Reported children . 4 Jan 27, 2013 Tobacco Use: . Are you a: never smoker Jan 27, 2013 Marital Status: single. Noel Szymanski Jan 27, 2013 Do you drink alcohol? . 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
[2018-09-23] MEDS ORDERED: CEFAZOLIN SOD 2 GM/D5W 50ML 50 ML IV ONE (05:56)
[2018-09-23] MEDS ORDERED: BUPIVACAINE 0.25%/EPI 30ML SDV INJ ONE (06:56)
[2018-09-23] MEDS ORDERED: ESTROGENS CONJUGATED VAGINAL CR 45 GM TUBE PV ONE (06:56)
[2018-09-23] MEDS ORDERED: HYDROCODONE/APAP 10MG-325MG TAB PO PRN (10:30)
[2018-09-23] MEDS ORDERED: SIMETHICONE 80 MG CHEW PO PRN (10:30)
[2018-09-23] MEDS ORDERED: ACETAMINOPHEN 325 MG TAB PO PRN (10:30)
[2018-09-23] MEDS ORDERED: ONDANSETRON HCL INJ 2MG/ML 2ML 2 MG/ML VIAL IV PRN (10:30)
[2018-09-23] MEDS ORDERED: DIPHENHYDRAMINE HCL 25 MG CAP PO PRN (10:30)
[2018-09-23] MEDS ORDERED: HYDROMORPHONE 1MG/1ML INJ IV PRN (10:30)
[2018-09-23] MEDS ORDERED: PROMETHAZINE HCL (IM) 25 MG/ML VIAL IV PRN (10:30)
[2018-09-23] MEDS ORDERED: HYDROCODONE/APAP 5MG-325MG TAB PO PRN (10:30)
[2018-09-23] MEDS ORDERED: MORPHINE SULFATE INJ 4 MG/ML INJ 1ML ONE (10:31)
[2018-09-23] MEDS ORDERED: HYDROMORPHONE 2MG/ML 2 MG/ML ML IV PRN (11:30)
--- NOTE | 2018-09-23 11:31 | NUR ---
Recvd patient from Recovery room. AAOx3, Sleepy. Assisted her to bed, Packing intact on vaginal area, no bleeding, Kaufman catheter is intact. On O2 2L NC, Denies any SOB, SCDs On, bed in lower position, call light in reach, daughter at bed side, keep monitoring
[2018-09-23] MEDS ORDERED: LIDOCAINE HCL 2% LOCAL INJ 5 ML SDV VIAL INJ ONE (11:35)
[2018-09-23] MEDS ORDERED: GLYCOPYRROLATE INJ 1MG/ 5 ML SYR ONE (11:35)
[2018-09-23] MEDS ORDERED: LIDOCAINE HCL 2% JELLY 5 ML TUBE ONE (11:35)
[2018-09-23] MEDS ORDERED: ACETAMINOPHEN 1000 MG/100 ML IV ONE (11:35)
[2018-09-23] MEDS ORDERED: ROCURONIUM BROMIDE 10 MG/ML 5ML VIAL ONE (11:35)
[2018-09-23] MEDS ORDERED: PROPOFOL IV EMULSION 10 MG/ML 20 ML VIAL ONE (11:35)
[2018-09-23] MEDS ORDERED: ONDANSETRON HCL INJ 2MG/ML 2ML 2 MG/ML VIAL ONE (11:35)
[2018-09-23] MEDS ORDERED: NEOSTIGMINE 5 MG/5ML SYR ONE (11:35)
[2018-09-23] MEDS ORDERED: SEVOFLURANE INHAL SOLN 250 ML PEN BTL ONE (11:35)
[2018-09-23] MEDS ORDERED: DEXAMETHASONE SOD PHOS INJ 4 MG/ML VIAL ONE (11:35)
[2018-09-23 11:39] VITALS: BP 100/46
[2018-09-23 11:47] VITALS: BP 100/46
[2018-09-23] MEDS: KETOROLAC TROMETHAMINE 30 MG/ML VIAL IV SCH ×2 (12:15→18:02)
[2018-09-23 12:29] VITALS: BP 100/46
[2018-09-23] MEDS: CEFAZOLIN SOD 1 GM/NS 50ML 50 ML IV SCH ×2 (14:06→22:06)
[2018-09-23 15:07] VITALS: BP 136/80
[2018-09-23] MEDS: LACTATED RINGER'S 1,000 ML IV SCH (17:11)
[2018-09-23] MEDS: DOCUSATE SODIUM 100 MG CAP PO SCH (17:12)
[2018-09-23] MEDS ORDERED: FENTANYL CITRATE/PF 100MCG/2 ML INJ ONE (19:10)
[2018-09-23] MEDS ORDERED: MIDAZOLAM HCL 2 MG/2 ML VIAL ONE (19:10)
--- NOTE | 2018-09-23 19:10 | NUR ---
received patient aaox3, no distress observed. family members at bedside. no needs voiced at this time. bed locked and in lowest position, call light within easy reach. will continue to monitor .
[2018-09-23 20:57] VITALS: BP 130/71
[2018-09-23 21:02] VITALS: BP 130/71
[2018-09-24 00:12] VITALS: BP 107/66
[2018-09-24] MEDS: KETOROLAC TROMETHAMINE 30 MG/ML VIAL IV SCH ×3 (00:12→12:12)
[2018-09-24] MEDS: LACTATED RINGER'S 1,000 ML IV SCH ×2 (01:49→10:27)
[2018-09-24 04:00] VITALS: BP 111/62
[2018-09-24] MEDS: CEFAZOLIN SOD 1 GM/NS 50ML 50 ML IV SCH (05:57)
[2018-09-24] MEDS ORDERED: LEVOTHYROXINE SODIUM 50 MCG TAB PO SCH (06:00)
[2018-09-24 06:06] LABS: BASOPHILS % 0.2 % (0.0-1.0); EOSINOPHILS % 0.5 % (0.0-6.0); HEMOGLOBIN 10.3 g/dL (12.0-16.0); LYMPHOCYTES # (AUTO) 1.9 (1.0-3.2); LYMPHOCYTES % 22.2 % (18.0-39.1); MEAN CORPUSCULAR HEMOGLOBIN 25.1 pg (28-32); MEAN CORPUSCULAR HGB CONC 32.2 g/dL (31-35); MONOCYTES # (AUTO) 0.9 (0.2-0.8); MONOCYTES % 10.2 % (4.4-11.3); NEUTROPHILS # (AUTO) 5.6 (2.1-6.9); NEUTROPHILS % 66.5 % (38.7-80.0); PLATELET COUNT 208 x10e3/uL (140-360); RED CELL DISTRIBUTION WIDTH 15.4 % (11.7-14.4)
[2018-09-24 06:20] LABS: ANION GAP 12.9 mmol/L (8-16); BLOOD UREA NITROGEN 13 mg/dL (7-26); BUN/CREATININE RATIO 18 (6-25); CALCIUM 8.6 mg/dL (8.4-10.2); CARBON DIOXIDE 22 mmol/L (22-29); CHLORIDE 109 mmol/L (98-107); CREATININE, SERUM 0.74 mg/dL (0.57-1.11); EST GLOMERULAR FILTRATION RATE > 60 ML/MIN (60-); GLUCOSE 93 mg/dL (74-118); POTASSIUM 3.9 mmol/L (3.5-5.1); SODIUM 140 mmol/L (136-145)
--- NOTE | 2018-09-24 06:35 | NUR ---
delgadillo cath removed per orders, tip intact. patient tolerated well. due to void. vaginal packing removed per orders, patient tolerated well. placed hat to patient toilet, instructed to call after each void. patient verbalized understanding.
--- NOTE | 2018-09-24 07:11 | NUR ---
pt resting in bed, family at bedside. no c/o pain or s/s distress. will continue to monitor.
[2018-09-24 08:20] VITALS: BP 111/55
[2018-09-24 08:46] VITALS: BP 111/55
[2018-09-24] MEDS: DOCUSATE SODIUM 100 MG CAP PO SCH (08:47)
--- NOTE | 2018-09-24 08:57 | NUR ---
pt voided. prevoid 220, post 200. paged MD to update. ed pt to continue to try to void and expel residual. will continue to monitor
--- NOTE | 2018-09-24 10:18 | NUR ---
pt voided, residual 250ml. updated MD.
--- NOTE | 2018-09-24 12:00 | NUR ---
voided 300ml
[2018-09-24 12:34] VITALS: BP 130/63
[2018-09-24] MEDS ORDERED: COLACE100 MG PO (14:07)
[2018-09-24] MEDS ORDERED: Hydrocodone/Apap 5MG-325MG PO (14:07)
[2018-09-24] MEDS ORDERED: IBUPROFEN600 MG PO (14:07)
--- NOTE | 2018-09-24 15:01 | NUR ---
revd dc instructions with pt and family, verbalized understanding. dc stable
--- NOTE | 2018-10-27 14:42 | Operative Report ---
DATE OF PROCEDURE: 09/23/2018 SURGEON: Kate Payton MD ASSISTANTS: 1. Natividad Fritz MD. 2. DANIELA Hartmann. PREOPERATIVE DIAGNOSES: Pelvic organ prolapse and genuine stress incontinence. POSTOPERATIVE DIAGNOSES: Pelvic organ prolapse and genuine stress incontinence. PROCEDURES PERFORMED: Transvaginal hysterectomy with bilateral salpingectomy, anterior and posterior colporrhaphy, sacrospinous colpopexy, transobturator taping for midurethral sling, and diagnostic cystoscopy. ANESTHESIA: General. ESTIMATED BLOOD LOSS: 150 mL. COMPLICATIONS: None. FINDINGS: Approximately third-degree prolapse with a slightly enlarged, approximately six-week size globular uterus. INDICATIONS: The patient is a 53-year-old female with pelvic organ prolapse and genuine stress incontinence, desiring definitive surgical correction. PROCEDURE NOTE: The risks, benefits, indications, and alternatives of the procedure were reviewed with the patient and informed consent was obtained. The patient was taken to the operating room, where general anesthesia was obtained. She was then placed in dorsal lithotomy position in [facility] stirrups and prepped and draped in typical sterile fashion. A time-out was then done. A weighted speculum was placed in the vagina and the cervix was grasped with two single-tooth tenaculums. A solution of Marcaine with epinephrine was injected circumferentially around the cervix. The cervix was then circumscribed with a scalpel and the bladder was dissected off with sharp dissection. The posterior cul-de-sac was then sharply entered and a long weighted gooseneck retractor was placed into the cul-de-sac in replacement of the standard weighted speculum. The right uterosacral ligament was then identified, clamped with a zeppelin clamp, divided, and suture ligated with 0 Vicryl. In a like fashion, the left uterosacral ligament was clamped, divided, and suture ligated. The left cardinal ligament and uterine vessels were then identified and sequentially clamped, coagulated and cut with the LigaSure device. This was followed by sequential clamping, coagulation and cutting of the cardinal ligaments and uterine vessels on the patient's right with the LigaSure device. The anterior cul-de-sac was then sharply dissected until the vesicouterine peritoneal reflection was identified and this was entered sharply. The right utero-ovarian ligament and fallopian tube were clamped with a curved zeppelin clamp, divided, and suture ligated. This was again performed on the contralateral side. The uterus and cervix were then removed through the vagina and sent for pathology. The ovaries and tubes were visualized and were normal bilaterally. The left fallopian tube was grasped with a Kannan and the LigaSure device used to clamp, coagulate, and cut the fallopian tube. The fallopian tube was then removed through the vagina and again sent for pathology. The same procedure was performed on the contralateral fallopian tube. All hysterectomy pedicles were inspected and noted to be hemostatic. Attention was then turned to the anterior colporrhaphy. The lateral edges of the vaginal cuff were held with Allis clamps on tension while solution of 0.5% Marcaine with epinephrine was injected just below the vaginal mucosa throughout the area of the cystocele. Several Allis clamps were placed 3-4 cm apart of the midline of the anterior vaginal wall. The edges of the vaginal mucosa were then held with hemostats and the Metzenbaum scissors were used to undermine the mucosa from the underlying fascia. The mucosa was opened with the scissors in the midline to within 2 cm of the urethral meatus. As the vagina was opened, the edges of the mucosa were grasped with Allis clamps. The fascia was from the vaginal mucosa using both sharp and blunt dissection until the bladder and urethra were from the vaginal mucosa and clearly identified. A finger was then inserted through the incision in the vaginal mucosa and used to bluntly dissect the rectovaginal space on the patient's right side. The ischial spine and sacrospinous ligament were palpated and loose areolar tissue was bluntly dissected off the ligament. A zone approximately 1.5 cm medial to the ischial spine was selected for insertion of the suture. A PivtoIM suture capturing device was loaded with 0 Vicryl suture and was then introduced into this space and passed through the sacrospinous ligament. This entire procedure was then repeated on the patient's left sacrospinous ligament. The ends of the suture previously inserted through the sacral spinous ligaments were then placed through the muscular layer of the vagina using a free needle. Attention was then returned to the anterior repair, which was started by placing 0 Vicryl sutures in the pubovesical cervical fascia starting approximately 1.5 cm below the urethral meatus. The remaining fascia was plicated in the midline with multiple interrupted 0 Vicryl sutures until the entire cystocele had been reduced. The edges of the vaginal mucosa were then held on tension and the excessive vaginal mucosa was trimmed away using the Grier scissors. The vaginal mucosa was then sutured in midline in a continuous fashion with 0 Vicryl suture. The vaginal cuff was then closed with multiple [id number] sutures of 0 Vicryl. Attention was then turned to the transobturator tape placement. A Kaufman catheter was placed into the bladder. A solution of 0.25% Marcaine with epinephrine was injected just below the vaginal mucosa chcf between the meatus and the uterovesical junction and on each side of the urethra deep to the endopelvic fascia. An approximately 1 cm incision was made vertically at the level of the midurethra through the vaginal mucosa. A combination of blunt and sharp dissection was performed until the pubic rami were palpable bilaterally. The connective tissues were dissected bluntly and sharply to allow placement of the Obtryx trocars. The 5 mm incisions were then made with a scalpel in the mid crural line at the level of the clitoris bilaterally. The trocar was then placed through the incision on the patient's left side pierced through the obturator membrane and guided along the posterior aspect of the pubic rami until the trocar was brought out through the vaginal mucosal incision. The TOT sling was then placed on the trocar and guided out through the trocar tract. A similar procedure was then performed on the opposite side. The transvaginal tape was then pulled up to a point loosely underlying the urethra that freely admitted the tips of the surgical scissors. The Kaufman was then removed and diagnostic cystoscopy was performed. The bladder and urethra were inspected for perforation and none was noted. The plastic sheaths were then removed from the sling and the ends were cut below the level of the skin at the exit points. The skin punctures were closed with Dermabond and the vaginal mucosa was then closed with 2-0 Vicryl running sutures in a continuous fashion. The bladder was emptied and the Kaufman catheter was replaced. Attention was then returned to the sacrospinous ligament fixation where the previously clamped sutures were tied drawing the vaginal vault directly to the level of the ligaments and affixing them in place. Attention was then turned to the posterior repair, the apices of the posterior fourchette were grasped with Allis clamps and a solution of 0.25% Marcaine with epinephrine was injected just below the vaginal mucosa throughout the area of the rectocele. A transverse incision was then made with a scalpel at the level of the hymenal ring. An additional Allis clamp was placed in the midline at the top of the rectocele and two hemostats were placed at the edges of the mucosa for retraction. Metzenbaum scissors were then inserted under the posterior vaginal mucosa dissecting the posterior mucosa off the rectovaginal fascia. A midline incision was then made in the mucosa. This process was repeated until the superior apex of the rectocele was reached. Interrupted sutures of 0 Vicryl were then placed to reapproximate the superficial transverse perinei muscle and levator ani muscle respectively. The vagina was then closed over this repair using 2-0 Vicryl suture. The bulbocavernosus was then reapproximated in the midline with a single interrupted 2-0 Vicryl suture. The perineum was then repaired using 2-0 Vicryl in a subcuticular fashion. The vagina was thoroughly rinsed with normal saline and good hemostasis was noted at all surgical sites. Vaginal packing soaked in Premarin cream was then placed within the vagina and all instruments were ensured to have been removed. The sponge, lap, needle, and instrument counts were correct x2. The patient was awakened from general anesthesia and brought to the recovery room in stable condition. MD LAN Contreras/SHANE /[id number]
== END 2018-09-24 15:05 | disposition home or self-care (01) ==
LOC: OR 05:10 → PACU V 10:24 → IMCU 11:07
PROVIDERS: ADMIT Obstetrics & Gynecology Obstetrics; ATTEND Obstetrics & Gynecology Obstetrics
DX: N81.89 Other female genital prolapse (principal); N39.3 Stress incontinence (female) (male); N93.8 Other specified abnormal uterine and vaginal bleeding; Z01.812 Encounter for preprocedural laboratory examination; E03.9 Hypothyroidism, unspecified; N80.0 Endometriosis of uterus; N72 Inflammatory disease of cervix uteri
CPT/HCPCS: 36415 ×2; 57260; 57288; 58262; 80048; 80053; 84702; 85025 ×2; 86850; 86900; 88307; 93005; C1758; C1781; G0378 ×2; J0131; J0690 ×3; J1100; J1170; J1885 ×2; J2001 ×2; J2250; J2270; J2405; J2704; J3490; J7121 ×2; J3010

== ENCOUNTER → 2020-05-06 | Day surgery (SDC) | payer BC ==
[~2020-05-06] MED LIST changes: +CALCIUM CARBON500 MG PO; +COLACE100 MG PO; +HYOSCYAMINE 0.125 MG TAB ONE; +Hydrocodone/Apap 5MG-325MG PO; +IBUPROFEN600 MG PO; +LIDOCAINE HCL 2% LOCAL INJ 5 ML SDV VIAL INJ ONE; +PROPOFOL IV EMULSION 10 MG/ML 20 ML VIAL ONE; +VITAMIN D3250 MCG PO
[2020-05-06 13:10] VITALS: BP 114/72
== END | disposition home or self-care (01) ==
LOC: OR 09:05
PROVIDERS: ATTEND Internal Medicine Gastroenterology
DX: Z12.11 Encounter for screening for malignant neoplasm of colon (principal); K64.8 Other hemorrhoids; R00.1 Bradycardia, unspecified; Z01.810 Encounter for preprocedural cardiovascular examination; Z01.812 Encounter for preprocedural laboratory examination; Z20.822 Contact with and (suspected) exposure to COVID-19; Z68.32 Body mass index [BMI] 32.0-32.9, adult; Z86.16 Personal history of COVID-19
CPT/HCPCS: 45378; 93005; J2001; J2704; U0002